=== PATIENT | female | born 1990 | race Two or more races ===

== ENCOUNTER 2016-12-21 10:53 | Emergency (ER) | payer SELFPAY ==
[~2016-12-21] VITALS: Ht 170.2 cm; Wt 77.1 kg
[2016-12-21 11:01] VITALS: BP 112/76
[2016-12-21 11:23] LABS: APPEARANCE,URINE Turbid (CLEAR); BILIRUBIN,URINE SMALL (NEGATIVE); BLOOD, URINE Large Ery/uL (NEGATIVE); COLOR,URINE Light yellow (YELLOW); KETONES,URINE Trace (NEGATIVE); LEUKOCYTE ESTERASE ,URINE Small (NEGATIVE); NITRITE, URINE Negative (NEGATIVE); PROTEIN,URINE >=300 mg/dl (NEGATIVE); UGLUCOSE Negative (NEGATIVE); UROBILINOGEN,URINE 0.2 EU/dL (0.2)
[2016-12-21 11:40] LABS: RBC,URINE TOO NUMEROUS TO COUN /HPF (0-2)
[2016-12-21 11:41] LABS: BACTERIA,URINE Few /HPF (None Seen); SQUAMOUS EPITHELIAL CELL,UR Few /HPF (None Seen)
== END 2016-12-21 11:53 | disposition home or self-care (01) ==
LOC: ER 10:54
DX: N30.01 Acute cystitis with hematuria (principal); F17.200 Nicotine dependence, unspecified, uncomplicated
CPT/HCPCS: 81000-TC; 84703-TC; 87086-TC; 87186-TC; A4606; Z7610

== ENCOUNTER 2017-03-18 05:16 | Emergency (ER) | payer OTHER ==
[~2017-03-18] VITALS: Ht 167.6 cm; Wt 67.6 kg
[2017-03-18 05:16] VITALS: BP 135/65
--- NOTE | 2017-03-18 05:26 | NUR ---
CALLED TO TRIAGE AND ASKED TO GIVE US A URINE SAMPLE BUT WALKED OUT TO THE WR INSTEAD
[2017-03-18 05:48] LABS: APPEARANCE,URINE CLOUDY (CLEAR); BILIRUBIN,URINE NEGATIVE (NEGATIVE); BLOOD, URINE 3+ Ery/uL (NEGATIVE); COLOR,URINE YELLOW (YELLOW); KETONES,URINE NEGATIVE (NEGATIVE); LEUKOCYTE ESTERASE ,URINE 1+ (NEGATIVE); NITRITE, URINE NEGATIVE (NEGATIVE); PROTEIN,URINE 3+ mg/dl (NEGATIVE); UGLUCOSE NEGATIVE (NEGATIVE); UROBILINOGEN,URINE 0.2 EU/dL (0.2)
[2017-03-18 06:01] LABS: BACTERIA,URINE Few /HPF (None Seen); SQUAMOUS EPITHELIAL CELL,UR Moderate /HPF (None Seen); WBC,URINE 21-50 /HPF (0-3)
== END 2017-03-18 06:12 | disposition home or self-care (01) ==
LOC: ER 05:19
DX: N39.0 Urinary tract infection, site not specified (principal); F17.200 Nicotine dependence, unspecified, uncomplicated
CPT/HCPCS: 81001; 84703; 87077; 87086; 87186; 99284; A4606; Z7610; 81000-TC